=== PATIENT | male | born 1990 | race Caucasian/White ===

== ENCOUNTER 2024-08-01 09:19 | Emergency (ER) | payer OTHER ==
[~2024-08-01] VITALS: Ht 182.9 cm; Wt 70.3 kg
[~2024-08-01 09:19] MED LIST: DUI500 PO; MUCINEX600 MG; MUPIROCIN22 GM TOP
[2024-08-01] MEDS ORDERED: BUTALB/ACETAMINOPHEN/CAFFEINE 1 TAB TABLET PO ONE ×2 (10:00→10:20)
[2024-08-01] MEDS ORDERED: ONDANSETRON 4 MG TAB.RAPDIS PO ONE ×2 (10:00→10:20)
[2024-08-01 10:45] LABS: HEMOGLOBIN 14.3 g/dL (13-16.00); MEAN CELL VOLUME 91.7 fL (80.0-100.00); MEAN CORPUSCULAR HEMOGLOBIN 31.3 pg (27.00-32.0); MEAN CORPUSCULAR HGB CONC 34.1 g/dl (32.0-36.0); PLATELET COUNT 326 K/uL (150-450); RED BLOOD COUNT 4.58 M/uL (4.00-6.00)
[2024-08-01] MEDS ORDERED: SINGULAIR10 MG PO (11:42)
[2024-08-01] MEDS ORDERED: PEPCID AC20 MG PO (11:42)
[2024-08-01] MEDS ORDERED: BUTALBIT-ACETA1 EACH PO (11:42)
== END 2024-08-01 11:55 | disposition home or self-care (01) ==
LOC: ER 09:19
PROVIDERS: General Practice
DX: J00 Acute nasopharyngitis [common cold] (principal); R51.9 Headache, unspecified; Z20.822 Contact with and (suspected) exposure to COVID-19